=== PATIENT | female | born 1955 | race Caucasian/White ===

== ENCOUNTER 2018-01-05 09:40 | Day surgery (SDC) | payer OTHER ==
[2018-01-04 11:24] VITALS: BMI 32.4
[~2018-01-05 09:40] MED LIST: TOBRA 0.3%/DEXAMETH 0.1% OPHTHALMIC SUSP 2.5 ML BTL TP ONE
[2018-01-05] MEDS ORDERED: TROPICAMIDE 0.5% OPHTHALMIC SOLN 15 ML BOTTLE ONE (09:57)
[2018-01-05] MEDS ORDERED: MOXIFLOXACIN HCL 0.5% OPHTHALMIC 3 ML BOTTLE ONE (09:57)
[2018-01-05] MEDS ORDERED: CYCLOPENTOLATE HCL 1% OPHTH SOLN 2 ML BOTTLE ONE (09:57)
[2018-01-05] MEDS ORDERED: PHENYLEPHRINE 2.5% OPHTH SOLN 15 ML BOTTLE ONE (09:58)
[2018-01-05] MEDS: MOXIFLOXACIN HCL 0.5% OPHTHALMIC 3 ML BOTTLE OP SCH ×3 (10:00→10:10)
[2018-01-05] MEDS: TROPICAMIDE 1% OPHTH SOLN 15 ML BOTTLE OP SCH ×3 (10:00→10:10)
[2018-01-05] MEDS: PHENYLEPHRINE 2.5% OPHTH SOLN 15 ML BOTTLE OP SCH ×3 (10:00→10:10)
[2018-01-05] MEDS: CYCLOPENTOLATE HCL 1% OPHTH SOLN 2 ML BOTTLE OP SCH ×3 (10:00→10:10)
[2018-01-05 10:28] VITALS: TEMP 98.2
--- NOTE | 2018-01-05 11:15 | HP ---
History & Physical Update - History History: No Change - Physical Physical: No Change - Assessment Assessment: No Change - Plan Plan: No Change
[2018-01-05] MEDS ORDERED: TETRACAINE 0.5% OPHTH SOLN 2 ML BOTTLE OS ONE (11:27)
[2018-01-05] MEDS ORDERED: POVIDONE-IODINE 5% OPHTHALMIC PREP 30 ML SOLUTION OS ONE (11:29)
[2018-01-05] MEDS ORDERED: MIDAZOLAM HCL 2 MG/2 ML SINGLE DOSE VIAL ONE (11:29)
[2018-01-05] MEDS ORDERED: CHONDROITIN SU A/HYALUR SOD 1 KIT IO ONE (11:36)
[2018-01-05] MEDS ORDERED: BSS (NA/CA/MG/K) BALANCED SALT SOLUTION OPHTH SOLN 15 ML BOTTLE OS ONE (11:36)
[2018-01-05] MEDS ORDERED: LIDOCAINE HCL 1% PRESERVATIVE FREE - 30ML VIAL IO ONE (11:36)
[2018-01-05] MEDS ORDERED: EPINEPHrine/PF 1 MG/1 ML (1:1,000) AMPULE SQ ONE (11:43)
[2018-01-05] MEDS ORDERED: TOBRA 0.3%/DEXAMETH 0.1% OPHTHALMIC SUSP 2.5 ML BTL TP ONE (11:54)
[2018-01-05 13:15] VITALS: BP 123/80; PULSE 65
--- NOTE | 2018-01-05 16:55 | OP ---
DATE OF OPERATION: 01/05/2018 SURGEON: Meng Wren M.D. PREOPERATIVE DIAGNOSIS: Cataract, left eye. OPERATION: Phacoemulsification and intraocular lens implantation left eye. POSTOPERATIVE DIAGNOSIS: Cataract, left eye. ANESTHESIA: Topical. COMPLICATIONS: None. BLOOD LOSS: None. SPECIMEN: None. BRIEF HISTORY: The patient is a 62-year-old woman with no significant past medical history presents with decreased vision in the left eye to 20/40 due to a 1 to 2+ nuclear sclerotic lens with anterior cortical changes. After the risks, benefits, and alternatives to cataract surgery were discussed with the patient she consented to surgery of the left eye. DESCRIPTION OF PROCEDURE: The patient was brought to the operating room and prepped and draped in the usual sterile fashion. An eyelid speculum was inserted in the left eye. Paracentesis was made, and the anterior chamber was inflated with operative lidocaine. This was followed by injection of Viscoat. A groove was made in the supratemporal clear cornea, which was tunneled forward with a crescent blade. The anterior chamber was entered with a 2.75 keratome. The cystotome was used to make an incision in the center of the capsule and continuous curvilinear capsulorrhexis was created. The lens was hydrodissected until it was found to rotate freely within the capsular bag. Phacoemulsification was then used to remove the lens in its entirety. Irrigation and aspiration were used to remove residual cortical material. The anterior chamber and capsular bag were reinflated with Provisc with a 22.5 diopter SN60WF AcrySof intraocular lens was injected into the capsular bag using a monarch injector. The lens was dialed into place using a Sinskey hook. Irrigation and aspiration was used to remove residual viscoelastic. The wound was thoroughly hydrated until it was found to be watertight and the eye was in appropriate pressure. The eyelid speculum was removed from the eye. Tobradex drops and a clear shield were placed over the left eye. The patient was transferred to the recovery room in stable condition and will follow up tomorrow. MENG WREN M.D. [id number]
== END 2018-01-05 13:45 | disposition home or self-care (01) ==
LOC: JASU-SURG 09:40
PROVIDERS: ATTEND Ophthalmology
PROC: 08RK3JZ Replacement of Left Lens with Synthetic Substitute, Percutaneous Approach (ICD-10-PCS; principal; 2018-01-05 11:00)
DX: H25.12 Age-related nuclear cataract, left eye (principal)

== ENCOUNTER 2018-02-16 06:08 | Day surgery (SDC) | payer OTHER ==
[2018-02-15 09:00] VITALS: BMI 32.4
[2018-02-16 06:30] VITALS: TEMP 97.9
[2018-02-16 11:29] VITALS: BP 125/75; PULSE 71
== END 2018-02-16 10:35 | disposition home or self-care (01) ==
LOC: JASU-SURG 06:08
PROVIDERS: ATTEND Ophthalmology
PROC: 08RJ3JZ Replacement of Right Lens with Synthetic Substitute, Percutaneous Approach (ICD-10-PCS; principal; 2018-02-16)
DX: H26.9 Unspecified cataract (principal)

== ENCOUNTER 2021-06-30 21:10 | Emergency (ER) | payer OTHER ==
[2021-06-30 21:19] VITALS: BP 110/71; PULSE 70; TEMP 98.1; BMI 34.7
[2021-06-30] MEDS ORDERED: ACETAMINOPHEN 500 MG TABLET (FP) PO ONE (21:59)
[2021-06-30] MEDS ORDERED: DIPHTH,PERTUSS(ACELL),TET 0.5 ML DISP.SYRIN IM ONE ×2 (21:59→22:18)
[2021-06-30] MEDS ORDERED: ACETAMINOPHEN 325 MG TABLET (FP) ONE (22:17)
[2021-06-30] MEDS ORDERED: LIDOCAINE HCL 1%, 10 MG/ML (20ML VIAL) ONE (22:30)
[2021-06-30] MEDS ORDERED: CEPHALEXIN 250 MG/5 ML ORAL SUSPENSION PO ONE (22:52)
[2021-06-30] MEDS ORDERED: CEPHALEXIN MONOHYDRATE 500 MG CAPSULE (UD) ONE (23:04)
== END 2021-06-30 23:05 | disposition home or self-care (01) ==
LOC: JER 21:10
PROC: 3E0234Z Introduction of Serum, Toxoid and Vaccine into Muscle, Percutaneous Approach (ICD-10-PCS; principal; 2021-06-30)
PROC: 0HQGXZZ Repair Left Hand Skin, External Approach (ICD-10-PCS; principal; 2021-06-30)
DX: S61.217A Laceration without foreign body of left little finger without damage to nail, initial encounter (principal); W26.8XXA Contact with other sharp object(s), not elsewhere classified, initial encounter
CPT/HCPCS: 12001-25; 90471; 90715; 99283-25

== ENCOUNTER 2024-11-17 04:21 | Day surgery (SDC) | payer OTHER ==
[2024-11-16 12:06] VITALS: BMI 31.3
[2024-11-17] MEDS ORDERED: LIDOCAINE HCL/PF 1% SDV 5ML VIAL ONE (07:16)
[2024-11-17] MEDS ORDERED: ACETAMINOPHEN 500 MG TABLET (FP) PO PRN (09:01)
[2024-11-17] MEDS: IOHEXOL 180 MG/1 ML ML IJ ONE ×2 (14:34)
[2024-11-17] MEDS: DEXAMETHASONE SOD PHOSPHATE 10 MG/1 ML VIAL IM ONE ×2 (14:34)
[2024-11-17] MEDS: LIDOCAINE HCL 1% PRESERVATIVE FREE - 30ML VIAL IJ ONE ×2 (14:34)
[2024-11-17 14:52] VITALS: BP 101/63; PULSE 68; RESP 18; TEMP 98
== END 2024-11-17 15:23 | disposition home or self-care (01) ==
LOC: JASU-SURG 04:21
PROVIDERS: ATTEND Pain Medicine Pain Medicine
PROC: 3E0R3BZ Introduction of Anesthetic Agent into Spinal Canal, Percutaneous Approach (ICD-10-PCS; 2024-11-17)
PROC: 3E0R33Z Introduction of Anti-inflammatory into Spinal Canal, Percutaneous Approach (ICD-10-PCS; principal; 2024-11-17 14:30)
DX: M48.061 Spinal stenosis, lumbar region without neurogenic claudication (principal); M54.16 Radiculopathy, lumbar region
CPT/HCPCS: 76000-TC-FY; J1100